=== PATIENT | female | born 1990 | race Caucasian/White ===

== ENCOUNTER 2022-04-06 08:20 | Day surgery (SDC) | payer OTHER ==
[~2022-04-06] VITALS: Ht 172.7 cm; Wt 86.2 kg
[2022-04-06] MEDS ORDERED: diphenhydrAMINE 50 MG/ML VIAL ONE (10:14)
[2022-04-06] MEDS ORDERED: MIDAZOLAM 5 MG/5 ML VIAL ONE (10:14)
[2022-04-06] MEDS ORDERED: LIDOCAINE 2% 100 MG/5 ML UJET TP ONE (10:14)
[2022-04-06] MEDS ORDERED: fentaNYL citrate 0.05 MG/ML VIAL ONE (10:14)
[2022-04-06] MEDS ORDERED: fentaNYL citrate 0.05 MG/ML VIAL IVP ONE (12:30)
[2022-04-06] MEDS ORDERED: MIDAZOLAM 5 MG/5 ML VIAL IV ONE (12:30)
== END 2022-04-06 11:10 | disposition home or self-care (01) ==
LOC: MDS 08:20 → MMU 08:27 → MDS 11:10
PROVIDERS: ATTEND Internal Medicine Gastroenterology
DX: R19.7 Diarrhea, unspecified (principal); K51.211 Ulcerative (chronic) proctitis with rectal bleeding; K51.919 Ulcerative colitis, unspecified with unspecified complications; Z20.822 Contact with and (suspected) exposure to COVID-19
CPT/HCPCS: 45331; 81025; 88305; 88342; J2250; J3010; 45330; J1200